=== PATIENT | male | born 1940 | race Caucasian/White ===

== ENCOUNTER 2018-09-29 10:33 | Outpatient (CLI) | payer MEDICARE, MEDICAID ==
[~2018-09-29 10:33] MED LIST: ASPI-1265 PO; ATOR20TA PO; CLOP75TA35 PO; DRON400T2 PO; DULO-31 PO; LISI-222 PO; METO-539 PO; NORCO10T PO; OMEG300C2 PO
[2018-09-29 11:37] LABS: BASOPHILS % (AUTO) 0.4 % (0-1); EOSINOPHILS # (AUTO) 0.2 X10'3 (0-0.9); EOSINOPHILS % (AUTO) 2.7 % (0-6); HEMOGLOBIN 14.4 g/dl (14.0-17.9); INR 1.1 INR; LYMPHOCYTES # (AUTO) 1.1 X10'3 (1.1-4.8); LYMPHOCYTES % (AUTO) 19.4 % (21-51); MEAN CORPUSCULAR HEMOGLOBIN 30.8 PG (27.0-31.0); MEAN CORPUSCULAR HGB CONC 32.7 % (33.0-36.5); MEAN CORPUSCULAR VOLUME 94.2 FL (78-98); MEAN PLATELET VOLUME 8.2 FL (7.4-10.4); MONOCYTES # (AUTO) 0.6 X10'3 (0-0.9); NEUTROPHILS # (AUTO) 3.7 X10'3 (1.8-7.7); NEUTROPHILS % (AUTO) 66.5 % (42-75); PARTIAL THROMBOPLASTIN TIME 31 SECONDS (22-32); PLATELET COUNT 207 X10'3 (140-440); PROTHROMBIN TIME 11.2 SECONDS (9.0-12.0); RED BLOOD COUNT 4.67 X10'6 (4.70-6.10); RED CELL DISTRIBUTION WIDTH 15.8 % (11.5-14.5); WHITE BLOOD COUNT 5.6 X10'3 (4.5-11.0)
[2018-09-29 11:42] LABS: ALANINE AMINOTRANSFERASE 32 U/L (12-78); ALBUMIN 3.5 G/DL (3.4-5.0); ALBUMIN/GLOBULIN RATIO 0.9 (1.1-1.5); ALKALINE PHOSPHATASE 139 IU/L (46-116); ANION GAP 9 (8-16); ASPARTATE AMINO TRANSFERASE 19 U/L (10-37); BILIRUBIN,TOTAL 0.9 MG/DL (0.1-1.0); BLOOD UREA NITROGEN 26 MG/DL (7-18); BUN/CREATININE RATIO 20.8 (5.4-32.0); CALCIUM 9.5 MG/DL (8.5-10.1); CHLORIDE 104 MMOL/L (99-107); CREATININE 1.25 MG/DL (0.60-1.10); GLUCOSE 129 MG/DL (70-104); SODIUM 139 MMOL/L (135-145); TOTAL CARBON DIOXIDE 26.3 MMOL/L (24-32); TOTAL PROTEIN 7.3 G/DL (6.4-8.2); eGFR 56 ML/MIN
== END 2018-09-29 23:59 | disposition home or self-care (01) ==
LOC: LAB 10:33
PROVIDERS: ATTEND Otolaryngology
DX: D69.1 Qualitative platelet defects (principal); I10 Essential (primary) hypertension; Z87.891 Personal history of nicotine dependence; Z79.82 Long term (current) use of aspirin
CPT/HCPCS: 36415; 80053; 85025; 85576; 85610; 85730

== ENCOUNTER 2024-02-18 05:59 | Day surgery (SDC) | payer MEDICARE, MEDICAID ==
[2024-02-17 13:47] LABS: BASOPHILS % (AUTO) 0.5 % (0-1); EOSINOPHILS # (AUTO) 0.2 X10'3 (0-0.9); EOSINOPHILS % (AUTO) 2.1 % (0-6); HEMOGLOBIN 14.7 g/dl (14.0-17.9); LYMPHOCYTES # (AUTO) 1.2 X10'3 (1.1-4.8); LYMPHOCYTES % (AUTO) 15.3 % (21-51); MEAN CORPUSCULAR HEMOGLOBIN 31.5 PG (27.0-31.0); MEAN CORPUSCULAR HGB CONC 33.4 g/dL (33.0-36.5); MEAN CORPUSCULAR VOLUME 94.2 FL (78-98); MONOCYTES # (AUTO) 1.1 X10'3 (0-0.9); MONOCYTES % (AUTO) 13.8 % (2-12); NEUTROPHILS # (AUTO) 5.3 X10'3 (1.8-7.7); NEUTROPHILS % (AUTO) 68.3 % (42-75); PLATELET COUNT 164 X10'3 (140-440); RED BLOOD COUNT 4.67 X10'6 (4.70-6.10); RED CELL DISTRIBUTION WIDTH 16.4 % (11.5-14.5); WHITE BLOOD COUNT 7.8 X10'3 (4.5-11.0)
[2024-02-17 13:55] LABS: ALBUMIN 3.3 G/DL (3.4-5.0); ANION GAP 7 (8-16); BLOOD UREA NITROGEN 38 MG/DL (7-18); BUN/CREATININE RATIO 30.6 (10.0-20.0); CALCIUM 8.7 MG/DL (8.5-10.1); CHLORIDE 106 MMOL/L (99-107); CREATININE 1.24 MG/DL (0.60-1.10); GLUCOSE 95 MG/DL (70-104); POTASSIUM 4.4 MMOL/L (3.5-5.1); SODIUM 137 MMOL/L (135-145); TOTAL CARBON DIOXIDE 23.7 MMOL/L (24-32); eGFR 55 ML/MIN
[2024-02-17 13:59] LABS: APTT 30 SECONDS (22-32); INR 1.1 INR; PROTHROMBIN TIME 11.5 SECONDS (9.0-12.0)
[2024-02-18] VITALS (11 sets, daily range): BP systolic 98–123; BP diastolic 58–99; PULSE 43–60; RESP 12–22; TEMP 97.7; O2SAT 93–99
[~2024-02-18] VITALS: Ht 180.3 cm; Wt 84.6 kg
[~2024-02-18 05:59] MED LIST changes: +CLOP75TA34 PO; -CLOP75TA35 PO; -DRON400T2 PO; +DRON400T7 PO
[2024-02-18] MEDS ORDERED: TEST75GE10 TOP (06:39)
[2024-02-18] MEDS ORDERED: ATOR-2 PO (06:39)
[2024-02-18] MEDS ORDERED: TRAM50TA2 PO (06:41)
[2024-02-18] MEDS ORDERED: APIX5TAB3 PO (06:43)
[2024-02-18] MEDS ORDERED: IRBE1TAB31 PO (06:44)
[2024-02-18] MEDS ORDERED: DAPA5TAB PO (06:45)
[2024-02-18] MEDS ORDERED: fentaNYL/PF 50MCG/1 ML 2ML syringe ONE (07:13)
[2024-02-18] MEDS ORDERED: midazolam 1 mg/ML 2ml injection ONE (07:13)
[2024-02-18] MEDS ORDERED: heparin 1,000unit/ml 10ml vial 10 ML ONE (07:13)
[2024-02-18] MEDS ORDERED: LIDOcaine 1% (10mg/ml) 2ml vial ONE (07:13)
[2024-02-18] MEDS ORDERED: verapamil 2.5 mg/ml inj IV ONE (07:13)
[2024-02-18] MEDS ORDERED: iohexol 350MG/ML 100ml bottle IV ONE ×2 (07:13→08:57)
[2024-02-18] MEDS ORDERED: iohexol 350 MG/ML 50ML vial IV ONE ×2 (07:13→08:57)
[2024-02-18] MEDS ORDERED: nitroGLYCERIN 500mcg/5mL D5W 5 ML IV ONE (07:14)
[2024-02-18] MEDS: acetylcysteine 200 MG/ml 4ml vial PO PRN (07:25)
[2024-02-18] MEDS: sodium bicarbonate 1meq/ml syr 150 ML in dextrose 5%-water 1,000 ML IV SCH (07:25)
[2024-02-18] MEDS: LORazepam 0.5 MG tablet PO PRN (07:26)
[2024-02-18] MEDS: diphenhydrAMINE 25mg capsule PO PRN (07:26)
[2024-02-18] MEDS: famotidine 20mg tablet PO ONE (07:26)
[2024-02-18] MEDS: normal saline 1,000 ML IV SCH (07:27)
[2024-02-18] MEDS: hydrocortisone sod succ/PF 100mg/2ml inj. IV ONE (08:29)
[2024-02-18] MEDS: acetylcysteine 200 MG/ml 4ml vial PO ONE ×2 (10:25→14:35)
== END 2024-02-18 15:08 | disposition home or self-care (01) ==
LOC: SSTAY O 05:59
PROVIDERS: ATTEND Internal Medicine Cardiovascular Disease
DX: R94.39 Abnormal result of other cardiovascular function study (principal); I25.10 Atherosclerotic heart disease of native coronary artery without angina pectoris; E78.5 Hyperlipidemia, unspecified; I48.20 Chronic atrial fibrillation, unspecified; G47.30 Sleep apnea, unspecified; Z79.01 Long term (current) use of anticoagulants; I25.2 Old myocardial infarction; K21.9 Gastro-esophageal reflux disease without esophagitis; I11.0 Hypertensive heart disease with heart failure; I50.32 Chronic diastolic (congestive) heart failure; G47.33 Obstructive sleep apnea (adult) (pediatric); Z95.5 Presence of coronary angioplasty implant and graft; Z91.041 Radiographic dye allergy status
CPT/HCPCS: 36415; 76937; 80048; 85025; 85610; 85730; 92978; 93005; 93458; 93571; 99152; 99153; J1644; J1720; J2250; J3010; J3490; J7030; J7070; Q0163; Q9967; 92979; 93572; A6258; A6402; C1725; C1751; C1753; C1769; C1894